=== PATIENT | female | born 2000 | race Two or more races ===

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

== ENCOUNTER 2021-08-18 16:21 | Emergency (ER) | payer SELFPAY ==
[~2021-08-18] VITALS: Ht 154.9 cm; Wt 70.2 kg
[~2021-08-18 16:21] MED LIST: DOCU-109 PO; IBUP-1027 PO; OXYC1TAB15 PO
[2021-08-18 17:20] VITALS: BP 118/60
[2021-08-18 19:56] LABS: BILIRUBIN,URINE NEGATIVE (NEG); CLARITY,URINE CLEAR; COLOR,URINE YELLOW
[2021-08-18 19:58] LABS: NITRITE,URINE NEGATIVE (NEG); PH,URINE 5.5 (<5.0-8.0); PROTEIN,URINE NEGATIVE (NEG-TRACE); UROBILINOGEN,URINE 0.2 mg/dL (0.2 mg/dL)
[2021-08-18 19:59] LABS: RBC,URINE 0 /HPF (0-2)
[2021-08-18 20:00] LABS: AMORPHOUS SEDIMENT,UR PRESENT /HPF; BACTERIA,URINE MOD /HPF (0-FEW)
== END 2021-08-18 20:20 | disposition left against medical advice (07) ==
LOC: ER 16:21
DX: R10.9 Unspecified abdominal pain (principal); Z53.21 Procedure and treatment not carried out due to patient leaving prior to being seen by health care provider
CPT/HCPCS: 81001; 81025

== ENCOUNTER 2021-08-20 11:07 | Emergency (ER) | payer SELFPAY ==
[~2021-08-20] VITALS: Ht 165.1 cm; Wt 69.7 kg
[2021-08-20] MEDS ORDERED: ONDANSETRON ODT 4 MG TAB.RAPDIS. PO ONE (12:00)
[2021-08-20] MEDS ORDERED: LIDO:MAALOX 1:1 20 ML SINGLE DOSE. SWSW ONE (12:00)
[2021-08-20 12:16] LABS: BASO % 0 % (0-3); EOS # 0.1 x10^3/uL (0.0-0.7); EOS % 2 % (0-3); HEMOGLOBIN 13.2 g/dL (12.0-15.5); LYMPH # 1.9 x10^3/uL (1.0-4.8); LYMPH % 27 % (24-48); MEAN CORPUSCULAR HEMOGLOBIN 29 pg (25-35); MEAN CORPUSCULAR HGB CONC 34 g/dL (31-37); MEAN CORPUSCULAR VOLUME 85 fL (79-100); MONO # 0.6 x10^3/uL (0.0-1.1); MONO % 8 % (0-9); NEUT # 4.5 x10^3/uL (1.8-7.7); NEUT % 63 % (31-73); PLATELET COUNT 232 x10^3/uL (140-400); RED BLOOD COUNT 4.59 x10^6/uL (3.50-5.40); RED CELL DISTRIBUTION WIDTH 12.4 % (11.5-14.5); WHITE BLOOD COUNT 7.1 x10^3/uL (4.0-11.0)
[2021-08-20 12:26] LABS: CALCIUM 8.3 mg/dL (8.5-10.1); CREATININE 0.7 mg/dL (0.6-1.0); GFR 105.6; POTASSIUM 3.8 mmol/L (3.5-5.1)
[2021-08-20 12:30] LABS: BACTERIA,URINE FEW /HPF (0-FEW); RBC,URINE 0 /HPF (0-2)
[2021-08-20 12:31] LABS: WBC,URINE OCC /HPF (0-4)
[2021-08-20 12:32] LABS: ALBUMIN 3.7 g/dL (3.4-5.0); MAGNESIUM 1.9 mg/dL (1.8-2.4); TOTAL BILIRUBIN 0.2 mg/dL (0.2-1.0); TOTAL PROTEIN 7.4 g/dL (6.4-8.2)
--- NOTE | 2021-08-20 13:13 | RAD ---
US ABDOMEN LIMITED History: Reason: RUQ / Epig pain / Spl. Instructions: / History: Comparison: None. Technique: Transabdominal ultrasound images are obtained of the right upper quadrant. Findings: Liver is normal in echogenicity. Right hepatic lobe measures 13.2 cm. Portal flow is hepatopedal. Adherent stone or polyp within the gallbladder measures 0.6 cm. No gallbladder wall thickening or per icholecystic fluid. Common bile duct measures 5 mm in diameter. Visualized pancreas not well seen due to overlying structures. The right kidney measures 12.1 x 5.4 x 4.7 cm. No hydronephrosis. Aorta and IVC not well seen due to overlying structures. IMPRESSION: 1. Small adherent stone or polyp within the gallbladder. Electronically signed by: Guillermo Marquez DO (08/20/2021 1:11 PM) [id number]
[2021-08-20 13:35] LABS: INFLUENZA A PATIENT NEGATIVE (NEGATIVE); INFLUENZA B PATIENT NEGATIVE (NEGATIVE)
[2021-08-20 14:30] VITALS: BP 118/62
[2021-08-20] MEDS ORDERED: FAMO-63 PO (15:17)
[2021-08-20] MEDS ORDERED: ONDA-84 PO (15:17)
[2021-08-20] MEDS ORDERED: SUCR1TAB35 PO (15:17)
--- NOTE | 2021-08-20 15:18 | PHYS DOC ---
Past Medical History Past Surgical History: Smoking Status: Never Smoker Alcohol Use: None Adult General Chief Complaint Chief Complaint: ABDOMINAL PAIN HPI HPI Patient is a 21 year old female who presents with abdominal pains been present for the last couple of days. Pain is in the epigastrium and right upper quadrant. Crampy in nature. She has some associated nausea and some association of pain with eating. No vomiting. No lower quadrant pain, diarrhea, dysuria or fever. Review of Systems Review of Systems Constitutional: Denies fever Eyes: Denies change in visual acuity or eye pain HENT: Denies sore throat Respiratory: Denies shortness of breath Cardiovascular: Denies chest pain GI: Reports abd pain : Denies dysuria Musculoskeletal: Denies back or extremity injury Integument: Denies rash or skin lesions Neurologic: Denies headache, focal weakness or sensory changes All other systems were reviewed and found to be within normal limits, except as documented in this note. Current Medications Current Medications Current Medications Medications (Trade) Dose Ordered Sig/Oliver Start Time Stop Time Status Last Admin Dose Admin Multi-Ingredient Mouthwash/Gargle (Gi Cocktail) 20 ml 1X ONCE 08/20/21 12:00 08/20/21 12:07 DC 08/20/21 12:47 20 ML Ondansetron HCl (Zofran Odt) 4 mg 1X ONCE 08/20/21 12:00 08/20/21 12:07 DC 08/20/21 12:47 4 MG Allergies Allergies Allergies Coded Allergies Type Severity Reaction Last Updated Verified No Known Drug Allergies 08/18/21 No Physical Exam Physical Exam Constitutional: Well developed, well nourished, no acute distress, non-toxic appearance. HENT: Normocephalic, atraumatic, bilateral external ears normal, mucosa moist, nose normal. Eyes: EOMI, conjunctiva normal, no discharge. Neck: Normal range of motion, supple, no stridor, no meningeal signs. Cardiovascular: Regular rate and rhythm Lungs & Thorax: Bilateral breath sounds clear to auscultation Abdomen: Soft, moderate right upper quadrant and epigastric tenderness, no obvious masses Skin: Warm, dry, no erythema, no rash. Extremities: No tenderness, no cyanosis, no clubbing, ROM intact, no edema. Neurologic: Alert and oriented, normal motor function, normal sensory function, no focal deficits noted. Psychologic: Affect normal, judgement normal, mood normal. Current Patient Data Vital Signs Vital Signs Date Time Temp Pulse Resp B/P (MAP) Pulse Ox O2 Delivery O2 Flow Rate FiO2 08/20/21 11:32 99.2 118 16 112/72 (85) 98 Room Air 99.2 Lab Values Laboratory Tests Test 08/20/21 11:44 08/20/21 11:45 08/20/21 12:00 08/20/21 13:03 POC Urine HCG, Qualitative Hcg negative (Negative) Urine Collection Type Unknown Urine Color (Auto) Light yellow Urine Turbidity Clear Urine pH (Auto) 5.5 (<5.0-8.0) Urine Specific [place] 1.023 (1.000-1.030) Urine Protein (Auto) Negative mg/dL (Negative) Urine Glucose (Auto)(UA) Negative mg/dL (Negative) Urine Ketones (Auto) Negative mg/dL (Negative) Urine Blood (Auto) Negative (Negative) Urine Nitrite Negative (Negative) Urine Bilirubin (Auto) Negative (Negative) Urine Urobilinogen (Auto) Normal mg/dL (Normal) Urine Leukocyte Esterase (Auto) Negative (Negative) Urine RBC 0 /HPF (0-2) Urine WBC Occ /HPF (0-4) Urine Squamous Epithelial Cells Many /LPF Urine Bacteria Few /HPF (0-FEW) White Blood Count 7.1 x10^3/uL (4.0-11.0) Red Blood Count 4.59 x10^6/uL (3.50-5.40) Hemoglobin 13.2 g/dL (12.0-15.5) Hematocrit 39.0 % (36.0-47.0) Mean Corpuscular Volume 85 fL (79-100) Mean Corpuscular Hemoglobin 29 pg (25-35) Mean Corpuscular Hemoglobin Concent 34 g/dL (31-37) Red Cell Distribution Width 12.4 % (11.5-14.5) Platelet Count 232 x10^3/uL (140-400) Neutrophils (%) (Auto) 63 % (31-73) Lymphocytes (%) (Auto) 27 % (24-48) Monocytes (%) (Auto) 8 % (0-9) Eosinophils (%) (Auto) 2 % (0-3) Basophils (%) (Auto) 0 % (0-3) Neutrophils # (Auto) 4.5 x10^3/uL (1.8-7.7) Lymphocytes # (Auto) 1.9 x10^3/uL (1.0-4.8) Monocytes # (Auto) 0.6 x10^3/uL (0.0-1.1) Eosinophils # (Auto) 0.1 x10^3/uL (0.0-0.7) Basophils # (Auto) 0.0 x10^3/uL (0.0-0.2) Sodium Level 141 mmol/L (136-145) Potassium Level 3.8 mmol/L (3.5-5.1) Chloride Level 105 mmol/L (98-107) Carbon Dioxide Level 23 mmol/L (21-32) Anion Gap 13 (6-14) Blood Urea Nitrogen 10 mg/dL (7-20) Creatinine 0.7 mg/dL (0.6-1.0) Estimated GFR (Cockcroft-Gault) 105.6 BUN/Creatinine Ratio 14 (6-20) Glucose Level 116 mg/dL (70-99) H Calcium Level 8.3 mg/dL (8.5-10.1) L Magnesium Level 1.9 mg/dL (1.8-2.4) Total Bilirubin 0.2 mg/dL (0.2-1.0) Aspartate Amino Transferase (AST) 13 U/L (15-37) L Alanine Aminotransferase (ALT) 23 U/L (14-59) Alkaline Phosphatase 78 U/L (46-116) Total Protein 7.4 g/dL (6.4-8.2) Albumin 3.7 g/dL (3.4-5.0) Albumin/Globulin Ratio 1.0 (1.0-1.7) Lipase 131 U/L (73-393) Influenza Type A Antigen Negative (NEGATIVE) Influenza Type B Antigen Negative (NEGATIVE) SARS-CoV-2 Antigen (Rapid) Negative (NEGATIVE) Laboratory Tests 08/20/21 12:00 Laboratory Tests 08/20/21 12:00 EKG EKG [] Radiology/Procedures Radiology/Procedures [] Impressions: PATIENT: PARIS SARAH MACCOUNT: [id number]#: [id number] : 2000 LOCATION: ER AGE: 21 SEX: F EXAM STATUS: REG ER ORD. PHYSICIAN: TANESHA CLEVELAND MD REASON: RUQ / Epig pain PROCEDURE: ABDOMEN LTD US ABDOMEN LIMITED History: Reason: RUQ / Epig pain / Spl. Instructions: / History: Comparison: None. Technique: Transabdominal ultrasound images are obtained of the right upper quadrant. Findings: Liver is normal in echogenicity. Right hepatic lobe measures 13.2 cm. Portal flow is hepatopedal. Adherent stone or polyp within the gallbladder measures 0.6 cm. No gallbladder wall thickening or pericholecystic fluid. Common bile duct measures 5 mm in diameter. Visualized pancreas not well seen due to overlying structures. The right kidney measures 12.1 x 5.4 x 4.7 cm. No hydronephrosis. Aorta and IVC not well seen due to overlying structures. IMPRESSION: 1. Small adherent stone or polyp within the gallbladder. Electronically signed by: Guillermo Marquez DO (08/20/2021 1:11 PM) [id number] DICTATED and SIGNED BY: GUILLERMO MARQUEZ DO DATE: 08/20/21 1309 Course & Med Decision Making Course & Med Decision Making Pertinent Labs and Imaging studies reviewed. (See chart for details) [] Is a 21-year-old female with abdominal pain. Ultrasound of the right upper quadrant demonstrates either an adherent stone or polyp in the gallbladder. Lab studies are unrevealing. I believe the patient's symptoms are either due to biliary colic or gastritis. We will start her on Pepcid and Carafate as well as Zofran and have her follow-up with general surgery if symptoms do not improve. Symptoms have resolved and she is stable for discharge at this time. Dragon Disclaimer Dragon Disclaimer This electronic medical record was generated, in whole or in part, using a voice recognition dictation system. Departure Departure Impression: Primary Impression: Abdominal pain Disposition: HOME / SELF CARE / HOMELESS Condition: STABLE Referrals: NO PCP (PCP) REAGAN FLORES MD Patient Instructions: Abdominal Pain (Nonspecific) Scripts Sucralfate (CARAFATE) 1 Gm Tablet 1 TAB PO QID for 30 Days, #120 TAB 0 Refills Prov: TANESHA CLEVELAND MD 08/20/21 Famotidine (PEPCID) 20 Mg Tablet 20 MG PO BID for 30 Days, #60 TAB Prov: TANESHA LCEVELAND MD 08/20/21 Ondansetron Hcl (ONDANSETRON HCL) 4 Mg Tablet 4 MG PO BID PRN for NAUSEA/VOMITING, #20 TAB Prov: TANESHA CLEVELAND MD 08/20/21 TANESHA CLEVELAND MD Aug 20, 2021 15:18
== END 2021-08-20 15:50 | disposition home or self-care (01) ==
LOC: ER 11:07
DX: R10.13 Epigastric pain (principal); R10.11 Right upper quadrant pain; R11.0 Nausea; Z20.822 Contact with and (suspected) exposure to COVID-19
CPT/HCPCS: 36415; 76705; 80053; 81001; 81025; 83690; 83735; 85025; 87428; 99284